=== PATIENT | female | born 1985 | race Caucasian/White ===

== ENCOUNTER 2019-06-04 08:02 | Emergency (ER) | payer MEDICAID ==
[~2019-06-04] VITALS: Ht 167.6 cm; Wt 77.2 kg
[2019-06-04 08:18] VITALS: BP 118/90
[2019-06-04] MEDS ORDERED: ketorolac trometh inj. 60 MG/2 ML VIAL IM ONE (09:25)
[2019-06-04] MEDS ORDERED: dexamethasone 4mg/ml inj IM ONE (09:25)
[2019-06-04] MEDS ORDERED: proCHLORperazine 10 MG/2 ml inj IM ONE (09:25)
== END 2019-06-04 10:15 | disposition home or self-care (01) ==
LOC: ER 08:03
DX: G43.909 Migraine, unspecified, not intractable, without status migrainosus (principal); H53.149 Visual discomfort, unspecified
CPT/HCPCS: 96372; 99283; J0780; J1100; J1885

== ENCOUNTER 2020-03-13 16:14 | Emergency (ER) | payer MEDICAID ==
[~2020-03-13] VITALS: Ht 167.6 cm; Wt 72.5 kg
[2020-03-13] MEDS ORDERED: dexamethasone sod phosphate 10mg/ml inj IV STA (17:26)
[2020-03-13] MEDS ORDERED: diphenhydrAMINE 50 mg/ml inj IV ONE (17:30)
[2020-03-13] MEDS ORDERED: proCHLORperazine 10 MG/2 ml inj IV ONE (17:30)
[2020-03-13] MEDS ORDERED: normal saline 1000ML IV soln IVB ONE (17:30)
[2020-03-13] MEDS ORDERED: ketorolac tromethamine 15mg/ml inj. IV ONE ×2 (17:30→17:45)
[2020-03-13 19:24] VITALS: BP 125/89
--- NOTE | 2020-03-13 19:34 | NUR ---
PT UP AND AMBULATORY TO RESTROOM
== END 2020-03-13 20:25 | disposition home or self-care (01) ==
LOC: ER 16:15
DX: G43.909 Migraine, unspecified, not intractable, without status migrainosus (principal); R11.2 Nausea with vomiting, unspecified
CPT/HCPCS: 96361; 96374; 96375; 99284; J0780; J1100; J1200; J1885; J7030

== ENCOUNTER 2021-05-10 07:11 | Emergency (ER) | payer MEDICAID ==
[~2021-05-10] VITALS: Ht 167.6 cm; Wt 71.8 kg
[2021-05-10 07:16] VITALS: BP 140/87
[2021-05-10] MEDS ORDERED: ketorolac tromethamine 15mg/ml inj. IV ONE (07:40)
[2021-05-10] MEDS ORDERED: dexamethasone sod phosphate 10mg/ml inj IV STA (07:40)
[2021-05-10] MEDS ORDERED: normal saline 1000ML IV soln IVB ONE (07:40)
[2021-05-10] MEDS ORDERED: proCHLORperazine 10 MG/2 ml inj IV ONE (07:40)
[2021-05-10] MEDS ORDERED: cyclobenzaprine 10mg tablet PO ONE (07:45)
== END 2021-05-10 08:15 | disposition home or self-care (01) ==
LOC: ER 07:12
DX: G43.909 Migraine, unspecified, not intractable, without status migrainosus (principal)
CPT/HCPCS: 96374; 96375; 99284; J0780; J1100; J1885; J7030

== ENCOUNTER 2022-01-17 11:50 | Emergency (ER) | payer MEDICAID ==
[~2022-01-17] VITALS: Ht 165.1 cm; Wt 73.0 kg
[2022-01-17 12:26] VITALS: BP 100/61
[2022-01-17 12:45] LABS: CLARITY,URINE SLIGHTLY CLOUDY (Clear); COLOR,URINE YELLOW (Yellow); GLUCOSE, URINE NEGATIVE (Neg); KETONES,URINE NEGATIVE (Neg); LEUKOCYTE ESTERASE ,URINE NEGATIVE (Neg); NITRITES, URINE NEGATIVE (Neg); OCCULT BLOOD,URINE MODERATE (Neg); PROTEIN,URINE NEGATIVE (Neg); UROBILINOGEN,URINE 0.2 E.U/dL (0.2-1.0)
[2022-01-17] MEDS ORDERED: ZOLP10TA PO (12:47)
[2022-01-17] MEDS ORDERED: [UNRECOGNIZED DRUG - CODE] PO (12:47)
[2022-01-17] MEDS ORDERED: UBRO100T (12:47)
[2022-01-17 12:51] LABS: UA COLLECTION TYPE CLN CATCH MIDSTREAM
[2022-01-17 13:05] LABS: BACTERIA,URINE 1+ /HPF (Neg); MUCUS STRANDS FEW /LPF (Neg); SQUAMOUS EPITHELIAL CELL,UR MANY /LPF (FEW); WBC,URINE 0-4 /HPF (0-4)
[2022-01-17] MEDS ORDERED: NITR100C11 PO (13:13)
== END 2022-01-17 13:26 | disposition home or self-care (01) ==
LOC: ER 11:50
DX: N39.0 Urinary tract infection, site not specified (principal); G43.909 Migraine, unspecified, not intractable, without status migrainosus; Z88.0 Allergy status to penicillin; Z79.899 Other long term (current) drug therapy
CPT/HCPCS: 81001; 99283